=== PATIENT | male | born 1960 | race Caucasian/White ===

== ENCOUNTER 2017-11-28 05:41 | Emergency (ER) | payer SELFPAY ==
[~2017-11-28] VITALS: Ht 175.3 cm; Wt 81.2 kg
[2017-11-28 07:03] VITALS: BP 115/81
[2017-11-28] MEDS ORDERED: AMOXICILLIN500 MG PO (07:19)
== END 2017-11-28 07:35 | disposition home or self-care (01) | DRG 605 ==
LOC: ED 05:41
PROC: 0HQGXZZ Repair Left Hand Skin, External Approach (ICD-10-PCS; principal; 2017-11-28)
DX: S61.213A Laceration without foreign body of left middle finger without damage to nail, initial encounter (principal); S61.215A Laceration without foreign body of left ring finger without damage to nail, initial encounter; I10 Essential (primary) hypertension; F17.210 Nicotine dependence, cigarettes, uncomplicated; W26.0XXA Contact with knife, initial encounter; Y93.G3 Activity, cooking and baking; Y92.000 Kitchen of unspecified non-institutional (private) residence as the place of occurrence of the external cause